=== PATIENT | female | born 1970 | race Caucasian/White ===

== ENCOUNTER 2020-10-06 21:37 | Emergency (ER) | payer OTHER ==
[~2020-10-06] VITALS: Ht 160 cm; Wt 86.6 kg
[2020-10-06] MEDS ORDERED: SYNTHROID88 MCG (21:56)
== END 2020-10-06 23:19 | disposition home or self-care (01) ==
LOC: ER 21:37
DX: L03.116 Cellulitis of left lower limb (principal); L03.115 Cellulitis of right lower limb